=== PATIENT | female | born 1980 | race Two or more races ===

== ENCOUNTER 2017-10-16 09:45 | Outpatient (CLI) | payer OTHER | END 2017-10-16 10:40 | disposition home or self-care (01) | LOC: SONOGRAMA 09:45 → MAMO-SONO 09:45 → SONOGRAMA 10:40 | DX: R10.84 Generalized abdominal pain (principal) ==

== ENCOUNTER 2022-01-13 08:47 | Outpatient (CLI) | payer OTHER | END 2022-01-13 09:06 | disposition home or self-care (01) | LOC: SONOGRAMA 08:47 | PROVIDERS: ATTEND General Practice | DX: E04.1 Nontoxic single thyroid nodule (principal); M62.838 Other muscle spasm; N20.0 Calculus of kidney; R10.9 Unspecified abdominal pain ==

== ENCOUNTER 2022-08-11 11:18 | Emergency (ER) | payer OTHER ==
[~2022-08-11] VITALS: Ht 162.6 cm; Wt 57.6 kg
== END 2022-08-11 16:15 | disposition home or self-care (01) ==
LOC: ER 11:18
DX: R42 Dizziness and giddiness (principal); I10 Essential (primary) hypertension; Z88.2 Allergy status to sulfonamides; Z20.822 Contact with and (suspected) exposure to COVID-19

== ENCOUNTER 2024-06-15 09:51 | Outpatient (CLI) | payer OTHER | END 2024-06-15 10:15 | disposition home or self-care (01) | LOC: MAMO-SONO 09:51 | PROVIDERS: ATTEND General Practice | DX: N64.4 Mastodynia (principal); Z12.31 Encounter for screening mammogram for malignant neoplasm of breast; E06.3 Autoimmune thyroiditis; R10.13 Epigastric pain ==

== ENCOUNTER 2024-12-28 12:50 | Outpatient (CLI) | payer OTHER | END 2024-12-28 13:00 | disposition home or self-care (01) | LOC: SONOGRAMA 12:50 | DX: E04.1 Nontoxic single thyroid nodule (principal) ==